=== PATIENT | male | born 1940 | race Caucasian/White ===

== ENCOUNTER 2023-08-31 09:07 | Inpatient (IN) ==
[2023-08-31 10:10] LABS: Basophils # (Auto) 0.01 K/mcL (0.00-0.30); Basophils % (Auto) 0.4 % (0.0-2.0); Eosinophils # (Auto) 0.06 K/mcL (0.00-0.70); Eosinophils % (Auto) 2.2 % (0.0-7.0); Hematocrit 40.7 % (40.1-51.0); Hemoglobin 13.4 g/dL (13.7-17.5); Lymphocytes # (Auto) 0.76 K/mcL (1.50-4.80); Lymphocytes % (Auto) 27.4 % (15.5-49.0); Mean Cell Volume 97.8 fL (80.0-100.0); Mean Corpuscular HGB Conc 32.9 g/dL (31.0-36.0); Mean Platelet Volume 8.5 fL (8.8-12.5); Monocytes # (Auto) 0.24 K/mcL (0.10-0.90); Monocytes % (Auto) 8.7 % (1.0-12.0); Neutrophils % (Auto) 60.6 % (38.0-78.0); Platelet Count 219 K/mcL (140-440); RBC 4.16 M/mcL (4.63-6.08); WBC 2.8 K/mcL (4.5-11.0)
[2023-08-31 10:32] LABS: ALT/SGPT 13 U/L (<40); AST/SGOT 20 U/L (<40); Albumin 4.1 gm/dL (3.2-5.2); Albumin/Globulin Ratio 1.4 (1.0-2.3); Alkaline Phosphatase 94 U/L (39-117); Bilirubin,Total 0.3 mg/dL (0.1-1.0); Blood Urea Nitrogen 23 mg/dL (8-23); Calcium 10.4 mg/dL (8.6-10.4); Carbon Dioxide 24 mmol/L (22-30); Chloride 106 mmol/L (96-108); Glomerular Filtration Rate 61; Glucose 142 mg/dL (70-105)
[2023-08-31 10:35] LABS: Appearance,Urine Clear (Clear); Bilirubin,Urine Negative (Negative); Color,Urine Yellow; Culture Indicated,Urine No; Glucose,Urine (UA) Negative (Negative); Ketones,Urine Negative (Negative); Leukocyte Esterase,Urine Negative /uL (Negative); Nitrate,Urine Negative (Negative); Protein,Urine Negative (Negative); Urine Blood Negative ery/mcL (Negative); Urobilinogen,Urine Normal
[2023-08-31 10:35] LABS: Prothrombin Time 13.4 sec (11.9-14.5)
[2023-08-31] MEDS: HYDROmorphone 0.5 MG/0.5 ML SYRINGE IV ONE (11:12)
[2023-08-31] MEDS: ACETAMINOPHEN 1,000 MG/100 ML BAG IV ONE (11:13)
[2023-08-31] MEDS: LACTATED RINGERS 1,000 ML IV SCH ×2 (11:14→20:41)
[2023-08-31] MEDS ORDERED: MAGNESIUM HYDROXIDE 30 ML ORAL.SUSP PO PRN (12:33)
[2023-08-31] MEDS ORDERED: ONDANSETRON 4 MG/2 ML VIAL IV PRN ×3 (12:33→19:03)
[2023-08-31] MEDS ORDERED: HYDROcodone/APAP 5/325MG TABLET PO PRN (12:33)
[2023-08-31] MEDS ORDERED: IBUPROFEN 600 MG TABLET PO PRN (12:33)
[2023-08-31] MEDS: morphine 4 MG/ML VIAL IV PRN (12:49)
[2023-08-31] MEDS: 0.9 % SODIUM CHLORIDE 10 ML SYRINGE IV SCH ×2 (15:42→21:36)
[2023-08-31] MEDS: ceFAZolin 2 GM in DEXTROSE 5% IN WATER 50 ML IV SCH (17:06)
[2023-08-31] MEDS ORDERED: DEXAMETHASONE 10 MG/ML VIAL ONE (17:09)
[2023-08-31] MEDS ORDERED: ONDANSETRON 4 MG/2 ML VIAL ONE ×2 (17:09→17:26)
[2023-08-31] MEDS ORDERED: PROPOFOL 200 MG/20 ML VIAL IV ONE (17:09)
[2023-08-31] MEDS ORDERED: GLYCOPYRROLATE 0.2 MG/ML VIAL IV ONE (17:09)
[2023-08-31] MEDS ORDERED: LIDOCAINE 2% PF 5 ML VIAL ONE (17:09)
[2023-08-31] MEDS ORDERED: KETAMINE 50 MG/ML Syringe IV ONE (17:10)
[2023-08-31] MEDS ORDERED: HYDROmorphone 1 MG/ML SYRINGE ONE (17:26)
[2023-08-31] MEDS ORDERED: diphenhydrAMINE 50 MG/ML VIAL ONE (17:53)
[2023-08-31] MEDS ORDERED: PHENYLephrine 1 MG/10 ML SYRINGE (ANEST) ONE (17:56)
[2023-08-31] MEDS ORDERED: TRANEXAMIC ACID 1,000 MG/10 ML VIAL ONE (17:58)
[2023-08-31] MEDS ORDERED: SUGAMMADEX SODIUM 200 MG/2 ML VIAL IV ONE (17:59)
[2023-08-31] MEDS ORDERED: ROCURONIUM 10 MG/ML ML IV ONE (18:00)
[2023-08-31] MEDS ORDERED: ePHEDrine 50 MG/5 ML SYRINGE (ANEST) IV ONE (18:11)
[2023-08-31] MEDS ORDERED: FAMOTIDINE/PF 20 MG/2 ML VIAL IV ONE (18:24)
[2023-08-31] MEDS ORDERED: MAGNESIUM SULFATE 2 GM/50 ML BAG IV ONE (18:39)
[2023-08-31] MEDS: ceFAZolin 1 GM VIAL ONE (18:46)
[2023-08-31] MEDS ORDERED: IPRATROPIUM/ALBUTEROL 3 ML AMPUL.NEB NEB PRN (18:51)
[2023-08-31] MEDS ORDERED: fentaNYL 100 MCG/2 ML VIAL IV PRN (18:51)
[2023-08-31] MEDS ORDERED: ePHEDrine 50 MG/ML AMPUL IV ONE (18:56)
[2023-08-31] MEDS ORDERED: FLEETS ADULT 1 DOSE ENEMA PR PRN (19:03)
[2023-08-31] MEDS ORDERED: BENZOCAINE/MENTHOL 1 LOZENGE PO PRN (19:03)
[2023-08-31] MEDS ORDERED: ONDANSETRON 4 MG ODT TABLET SL PRN (19:03)
[2023-08-31] MEDS ORDERED: METHOCARBAMOL 1,000 MG/10 ML VIAL IV PRN (19:03)
[2023-08-31] MEDS: TRANEXAMIC ACID 1,000 MG/10 ML VIAL IV ONE (19:43)
[2023-08-31] MEDS: TRANEXAMIC ACID 1,000 MG/10 ML VIAL ONE (20:27)
[2023-08-31] MEDS: 0.9 % SODIUM CHLORIDE 1,000 ML IV SCH (20:41)
[2023-08-31] MEDS ORDERED: SENNOSIDES 1 TABLET PO SCH (21:00)
[2023-08-31] MEDS ORDERED: DOCUSATE SODIUM 100 MG CAPSULE PO SCH (21:00)
[2023-08-31] MEDS: SENNOSIDES 1 TABLET PO SCH (21:34)
[2023-08-31] MEDS: ACETAMINOPHEN 325 MG TABLET PO PRN (21:35)
[2023-08-31] MEDS: DOCUSATE SODIUM 100 MG CAPSULE PO SCH (21:35)
[2023-08-31] MEDS: ASPIRIN 81 MG TAB.CHEW PO SCH (21:35)
[2023-08-31] MEDS: GABAPENTIN 300 MG CAPSULE PO SCH (21:36)
[2023-09-01] MEDS: KETOROLAC 15 MG/ML VIAL IV PRN (00:55)
[2023-09-01] MEDS: ceFAZolin 1 GM VIAL IV SCH (00:55)
[2023-09-01] MEDS: HYDROcodone/APAP 10/325MG TABLET PO PRN (00:55)
[2023-09-01 06:26] LABS: Basophils # (Auto) 0.02 K/mcL (0.00-0.30); Basophils % (Auto) 0.5 % (0.0-2.0); Eosinophils # (Auto) 0 K/mcL (0.00-0.70); Eosinophils % (Auto) 0 % (0.0-7.0); Hematocrit 37.8 % (40.1-51.0); Hemoglobin 12.4 g/dL (13.7-17.5); Lymphocytes # (Auto) 0.25 K/mcL (1.50-4.80); Lymphocytes % (Auto) 5.8 % (15.5-49.0); Mean Cell Volume 97.4 fL (80.0-100.0); Mean Corpuscular HGB Conc 32.8 g/dL (31.0-36.0); Mean Platelet Volume 8.6 fL (8.8-12.5); Monocytes % (Auto) 2.3 % (1.0-12.0); Neutrophils % (Auto) 90.9 % (38.0-78.0); Platelet Count 215 K/mcL (140-440); RBC 3.88 M/mcL (4.63-6.08); WBC 4.3 K/mcL (4.5-11.0)
[2023-09-01 06:38] LABS: ALT/SGPT 12 U/L (<40); AST/SGOT 18 U/L (<40); Albumin 3.3 gm/dL (3.2-5.2); Albumin/Globulin Ratio 1.3 (1.0-2.3); Alkaline Phosphatase 74 U/L (39-117); Bilirubin,Direct < 0.2 mg/dL (0-0.3); Bilirubin,Total 0.2 mg/dL (0.1-1.0); Blood Urea Nitrogen 24 mg/dL (8-23); Calcium 9.4 mg/dL (8.6-10.4); Carbon Dioxide 22 mmol/L (22-30); Chloride 108 mmol/L (96-108); Globulin 2.5 gm/dL (2.2-3.7); Glomerular Filtration Rate 55; Glucose 181 mg/dL (70-105); Lactate Dehydrogenase 137 U/L (135-225); Phosphorous 2.2 mg/dL (2.5-4.5); Triglycerides 53 mg/dL (<150); Uric Acid 5.7 mg/dL (2.5-8.0)
[2023-09-01] MEDS: amLODIPine 5 MG TABLET PO SCH (09:18)
[2023-09-01] MEDS: LOSARTAN 50 MG TABLET PO SCH (09:21)
[2023-09-01] MEDS: PHOSPHORUS 250 MG TABLET PO SCH (09:34)
[2023-09-01] MEDS: valACYclovir 500 MG TABLET PO SCH (09:35)
[2023-09-01] MEDS: morphine 4 MG/ML VIAL IV PRN (19:28)
[2023-09-02 06:17] LABS: Hematocrit 32.4 % (40.1-51.0); Hemoglobin 10.7 g/dL (13.7-17.5)
[2023-09-02] MEDS: MAGNESIUM HYDROXIDE 30 ML ORAL.SUSP PO PRN (09:31)
[2023-09-02] MEDS: POLYETHYLENE GLYCOL 3350 17 GM PACKET PO PRN (09:32)
[2023-09-03 09:30] LABS: Hematocrit 34.4 % (40.1-51.0); Hemoglobin 11.3 g/dL (13.7-17.5)
[2023-09-03] MEDS: BISACODYL 10 MG SUPP.RECT PR PRN (16:44)
[2023-09-03] MEDS: hydrALAZINE 20 MG/ML VIAL IV PRN (19:06)
[2023-09-04 03:36] VITALS: TEMP 98.1; O2SAT 95
== END 2023-09-04 11:25 | DRG 522 ==
LOC: ED 09:07 → MEDSUR 12:17
PROVIDERS: ADMIT Student in an Organized Health Care Education/Training Program; ATTEND Internal Medicine